=== PATIENT | male | born 1975 | race Two or more races ===

== ENCOUNTER 2021-12-26 07:38 | Emergency (ER) | payer OTHER ==
[~2021-12-26] VITALS: Ht 175.3 cm; Wt 70.3 kg
[2021-12-26] MEDS ORDERED: DOXYCYCLINE HYCLATE 100 MG TABLET PO ONE (08:00)
[2021-12-26] MEDS ORDERED: CEFTRIAXONE 500 MG VIAL IM ONE (08:00)
--- NOTE | 2021-12-26 08:01 | NUR ---
Female pc maintenance technician accompanied patient for (Dr Delgado).
[2021-12-26] MEDS ORDERED: CEFTRIAXONE 500 MG VIAL ONE (08:17)
[2021-12-26] MEDS ORDERED: DOXY100C5 PO (08:23)
[2021-12-26] MEDS ORDERED: DOXYCYCLINE HYCLATE 100 MG TABLET ONE (08:23)
--- NOTE | 2021-12-26 09:10 | NUR ---
Pt remained cooperative.
[2021-12-26 09:53] VITALS: BP 114/66
[2021-12-28 03:07] LABS: *TRIC.VAG. NAA Negative (Negative)
[2021-12-28 05:06] LABS: *GC NAA Negative (Negative)
== END 2021-12-26 09:54 | disposition home or self-care (01) ==
LOC: ER 07:38
DX: B04 Monkeypox (principal); T74.21XA Adult sexual abuse, confirmed, initial encounter; Z20.2 Contact with and (suspected) exposure to infections with a predominantly sexual mode of transmission; Z91.018 Allergy to other foods
CPT/HCPCS: 99283; 86592; 87806; 36415; 96372; 87491; J0696; A4663